=== PATIENT | female | born 1970 | race Caucasian/White ===

== ENCOUNTER → 2018-03-23 | Outpatient (CLI) | payer BC ==
[~2018-03-23] MED LIST: BACL1TAB PO; FEXO180T PO; FLUO20CA34 PO; MULT-506 PO; OMEP20CA59 PO; OXYC-57 PO; XYZAL
== END | disposition home or self-care (01) ==
LOC: C.PATHSPEC 14:46
PROVIDERS: ATTEND Dentist Endodontics
DX: K04.5 Chronic apical periodontitis (principal)